=== PATIENT | female | born 1980 | race Caucasian/White ===

== ENCOUNTER → 2017-01-20 | Outpatient (REF) | payer OTHER | LOC: M SFHCWAGY 16:07 | PROVIDERS: ATTEND Nurse Practitioner Family | DX: Z12.4 Encounter for screening for malignant neoplasm of cervix (principal) ==

== ENCOUNTER 2017-12-25 16:33 | Emergency (ER) | payer OTHER | END 2017-12-25 17:32 | disposition home or self-care (01) | LOC: M ED 16:33 | DX: K08.89 Other specified disorders of teeth and supporting structures (principal); R51 Headache; R11.0 Nausea; Z87.891 Personal history of nicotine dependence | CPT/HCPCS: 99282 ==

== ENCOUNTER → 2018-01-09 | Outpatient (CLI) | payer OTHER | LOC: M RAD 09:13 | DX: R92.8 Other abnormal and inconclusive findings on diagnostic imaging of breast (principal) | CPT/HCPCS: 77066 ==

== ENCOUNTER 2018-09-18 09:32 | Emergency (ER) | payer OTHER ==
[~2018-09-18] VITALS: Ht 154.9 cm; Wt 70.5 kg
[~2018-09-18 09:32] MED LIST: AUGM500T34 PO; MAGICMW MT
[2018-09-18] MEDS ORDERED: KETOROLAC 60 MG/2 ML VIAL (J1885) IM ONE (10:30)
[2018-09-18] MEDS ORDERED: CYCLOBENZAPRINE 10 MG TAB PO ONE (10:30)
[2018-09-18] MEDS ORDERED: NAPR-885 PO (11:05)
[2018-09-18] MEDS ORDERED: ROBA500T PO (11:05)
[2018-09-18 11:15] VITALS: BP 124/77
--- NOTE | 2018-09-18 17:37 | ECGEPIP ---
Stationary ECG Study [facility] - ED Test Date: 2018-09-18 Pat Name: MABLE BAPTISTE Department: Room: - Gender: F [employer]: : 1980 Requested By: JOSSELIN Reinoso PA-C Order Number: [id number] Reading MD: Shayne Snyder Measurements Intervals [place] Rate: 78 P: 69 LA: 162 QRS: 52 QRSD: 96 T: 16 QT: 356 QTc: 406 Interpretive Statements SINUS RHYTHM POSSIBLE LEFT ATRIAL ENLARGEMENT NSTTW ABNORMALITIES NO PRIORS FOR COMPARISON Electronically Signed On 09-18-2018 17:36:31 EST by Shayne Snyder
== END 2018-09-18 11:19 | disposition home or self-care (01) ==
LOC: M ED 09:32
DX: S46.812A Strain of other muscles, fascia and tendons at shoulder and upper arm level, left arm, initial encounter (principal); X50.0XXA Overexertion from strenuous movement or load, initial encounter; Y92.098 Other place in other non-institutional residence as the place of occurrence of the external cause
CPT/HCPCS: 93005; 96372; 99284; J1885

== ENCOUNTER → 2018-10-29 | Outpatient (REF) | payer OTHER ==
[~2018-10-29] MED LIST changes: +NAPR-885 PO; +ROBA500T PO
== END ==
LOC: M SFHCLERA 20:22
PROVIDERS: ATTEND Physician Assistant
DX: R09.81 Nasal congestion (principal)

== ENCOUNTER 2019-06-15 19:04 | Emergency (ER) | payer OTHER ==
[~2019-06-15] VITALS: Ht 154.9 cm; Wt 68.2 kg
[2019-06-15] MEDS ORDERED: KETOROLAC 30 MG/ML VIAL (J1885) IM ONE (22:00)
[2019-06-15] MEDS ORDERED: ACETAMINOPHEN 500 MG TAB PO ONE (22:00)
[2019-06-15] MEDS ORDERED: LIDOCAINE 5% (LIDODERM) PATCH TD ONE (22:00)
[2019-06-16 00:08] VITALS: BP 111/56
[2019-06-16] MEDS ORDERED: **NOTE PATIENT COMMENT** MISC XX SCH (10:00)
== END 2019-06-16 00:09 | disposition home or self-care (01) ==
LOC: M ED 19:04
DX: S39.012A Strain of muscle, fascia and tendon of lower back, initial encounter (principal); X50.3XXA Overexertion from repetitive movements, initial encounter; Y92.098 Other place in other non-institutional residence as the place of occurrence of the external cause; Y93.F9 Activity, other caregiving; Y99.8 Other external cause status; Z87.891 Personal history of nicotine dependence
CPT/HCPCS: 96372; 99283; J1885

== ENCOUNTER → 2020-08-17 | Outpatient (REF) | payer OTHER | LOC: M SFHCWAGY 13:41 | PROVIDERS: ATTEND Nurse Practitioner Family | DX: Z12.4 Encounter for screening for malignant neoplasm of cervix (principal); R87.612 Low grade squamous intraepithelial lesion on cytologic smear of cervix (LGSIL) ==

== ENCOUNTER → 2020-09-05 | Outpatient (REF) | payer OTHER | LOC: M SFHCWAGY 17:13 | PROVIDERS: ATTEND Obstetrics & Gynecology | DX: R87.612 Low grade squamous intraepithelial lesion on cytologic smear of cervix (LGSIL) (principal) ==

== ENCOUNTER → 2020-09-24 | Outpatient (CLI) | payer OTHER | LOC: M LABSMTC 10:40 | PROVIDERS: ATTEND Anesthesiology | DX: Z01.812 Encounter for preprocedural laboratory examination (principal); Z20.822 Contact with and (suspected) exposure to COVID-19 ==

== ENCOUNTER 2020-09-29 08:58 | Day surgery (SDC) | payer OTHER ==
[~2020-09-29] VITALS: Ht 154.9 cm; Wt 83.4 kg
[~2020-09-29 08:58] MED LIST changes: +LIDOCAINE W/EPINEPHRINE 1% 20ML VIAL As Ordered ONE; +LR 1,000 ML IV ONE
[2020-09-29] MEDS ORDERED: propofoL 500 MG/50 ML VIAL As Ordered ONE (09:14)
[2020-09-29] MEDS ORDERED: LIDOCAINE 2% 100MG/5ML SDV (FOR ANES.) As Ordered ONE (09:14)
[2020-09-29] MEDS ORDERED: ONDANSETRON 4MG/2ML VIAL As Ordered ONE (09:14)
[2020-09-29] MEDS ORDERED: KETOROLAC 60MG 2ML VIAL As Ordered ONE (09:14)
[2020-09-29] MEDS ORDERED: dexameTHASONE 4 MG/ML 1ML VIAL (J1100 PER 1MG) As Ordered ONE (09:14)
[2020-09-29] MEDS ORDERED: fentaNYL 100 MCG/2 ML INJECTION (J3010) As Ordered ONE (09:15)
[2020-09-29] MEDS ORDERED: MIDAZOLAM INJ 2MG/2ML VIAL (J2250 PER 1MG) As Ordered ONE (09:15)
[2020-09-29] MEDS ORDERED: IODINE STRONG SOLN 15 ML BTL As Ordered ONE (09:41)
[2020-09-29 09:54] LABS: HEMATOCRIT 42.2 % (36.0-47.0); HEMOGLOBIN 13.3 g/dl (12.0-15.5); MEAN CORPUSCULAR HEMOGLOBIN 26.2 pg (27.0-33.0); MEAN CORPUSCULAR HGB CONC 31.5 g/dl (32.0-36.5); MEAN CORPUSCULAR VOLUME 83.2 fl (80.0-96.0); PLATELET COUNT, AUTOMATED 253 10^3/uL (150-450); RED BLOOD COUNT 5.07 10^6/uL (4.00-5.40); WHITE BLOOD COUNT 4.6 10^3/uL (4.0-10.0)
[2020-09-29 10:16] LABS: HCG, SERUM QUALITATIVE NEGATIVE (NEGATIVE)
--- NOTE | 2020-09-29 11:01 | ROOPDOC ---
[facility] Report Of Operation Report of Operation DATE OF OPERATION: 09/29/2020 PREOPERATIVE DIAGNOSIS:. CALLIE-2/3 POSTOPERATIVE DIAGNOSIS: CALLIE 2/3 PROCEDURE PERFORMED: Loop electrosurgical excision procedure (LEEP) SURGEON: Neftali Solomon DO CALCINER FEEDER: None. ANESTHESIA: Intravenous (IV) sedation with local anesthesia/paracervical block. SPECIMEN(S) SENT TO PATHOLOGY: Bottom half of the cervix with squamocolumnar junction. Top half of the cervix with the squamocolumnar junction. Endocervix ESTIMATED BLOOD LOSS: 10 mL. FLUIDS PLACED: 400 mL. DRAINS: In and out catheter, 50 mL. URINE OUTPUT: None. COMPLICATIONS: None. ANTIBIOTICS: None indicated. INTRAOPERATIVE FINDINGS: INDICATIONS: CALLIE 2/3 at 7:00 ectocervix. DESCRIPTION OF PROCEDURE: The patient was counseled and consented on the risks, benefits, indications, and alternatives of the procedure. Informed consent was obtained. She was taken to the operating room with an IV running in placed on the operating table and then dorsal supine position. Anesthesia was found to be adequate. She was placed in the high lithotomy position. She was prepared and draped in normal sterile fashion. Time-out was performed per protocol. The bladder was drained with sterile in and out catheter. A coated Graves speculum was placed into the vagina with good visualization of the cervix. Paracervical block was performed for postoperative comfort. 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 The size 20 mm x 10 mm loop was used to excise the bottom half of the cervix at the level of the squamocolumnar junction. In a similar fashion the top half of the cervix including the squamocolumnar junction was excised with the same loop, and these two specimens were sent separately to pathology. The remaining raw cervix was cauterized with a roller ball cautery. Excellent hemostasis was noted. Monsel solution was applied to ensure hemostasis. Sponge, needle, and instrument counts were correct per protocol. The patient tolerated the entire procedure very well. She was transferred to the PACU in good and stable condition. NEFTALI SOLOMON DO Sep 29, 2020 11:01
[2020-09-29 11:20] VITALS: BP 132/65
== END 2020-09-29 11:47 | disposition home or self-care (01) ==
LOC: M SDC 08:58
PROVIDERS: ATTEND Obstetrics & Gynecology
DX: N87.0 Mild cervical dysplasia (principal); F41.9 Anxiety disorder, unspecified; Z87.891 Personal history of nicotine dependence
CPT/HCPCS: 36415; 57522; 84703; 85027; 86850; 86900; 86901; 88305; 88307; J2250; J3010

== ENCOUNTER → 2021-08-20 | Outpatient (REF) | payer OTHER ==
[~2021-08-20] MED LIST changes: -LIDOCAINE W/EPINEPHRINE 1% 20ML VIAL As Ordered ONE; -LR 1,000 ML IV ONE
[2021-08-20 13:38] LABS: HEMATOCRIT 40.6 % (36.0-47.0); HEMOGLOBIN 12.8 g/dl (12.0-15.5); MEAN CORPUSCULAR HEMOGLOBIN 26.1 pg (27.0-33.0); MEAN CORPUSCULAR HGB CONC 31.5 g/dl (32.0-36.5); MEAN CORPUSCULAR VOLUME 82.9 fl (80.0-96.0); PLATELET COUNT, AUTOMATED 287 10^3/uL (150-450); WHITE BLOOD COUNT 6.4 10^3/uL (4.0-10.0)
[2021-08-20 14:35] LABS: ALT/SGPT 28 U/L (12-78); BILIRUBIN,TOTAL 0.4 MG/DL (0.2-1.0); BLOOD UREA NITROGEN 10 MG/DL (7-18); CALCIUM LEVEL 9.3 MG/DL (8.5-10.1); CARBON DIOXIDE LEVEL 27 MEQ/L (21-32); CHLORIDE LEVEL 104 MEQ/L (98-107); CREATININE FOR GFR 0.91 MG/DL (0.55-1.30); GLOMERULAR FILTRATION RATE > 60.0 (>60); GLUCOSE, FASTING 90 MG/DL (70-100); POTASSIUM SERUM 4.2 MEQ/L (3.5-5.1); SODIUM LEVEL 138 MEQ/L (136-145)
[2021-08-20 14:36] LABS: ALBUMIN 3.9 GM/DL (3.2-5.2); CHOLESTEROL LEVEL 198 MG/DL (<200); CHOLESTEROL RISK RATIO 3.142 (<5); HDL CHOLESTEROL 63 MG/DL (>40); LDL CHOLESTEROL 121 MG/DL (<100); NON-HDL-C 135 MG/DL; TOTAL PROTEIN 7.2 GM/DL (6.4-8.2); TRIGLYCERIDES LEVEL 70 MG/DL (<150)
== END ==
LOC: M SFHCADAM 09:30
PROVIDERS: ATTEND Physician Assistant Medical
DX: Z00.00 Encounter for general adult medical examination without abnormal findings (principal); Z13.220 Encounter for screening for lipoid disorders; Z13.0 Encounter for screening for diseases of the blood and blood-forming organs and certain disorders involving the immune mechanism

== ENCOUNTER → 2021-08-20 | Outpatient (CLI) | payer OTHER | LOC: M EKG 16:24 | PROVIDERS: ATTEND Physician Assistant Medical | DX: R00.2 Palpitations (principal) ==

== ENCOUNTER → 2021-10-15 | Outpatient (REF) | payer OTHER ==
[2021-10-15 13:36] LABS: FREE T4 1.23 NG/DL (0.76-1.46); THYROID STIMULATING HORMONE 3.2 uIU/ML (0.358-3.740)
== END ==
LOC: M SFHCADAM 08:16
PROVIDERS: ATTEND Physician Assistant Medical
DX: E03.9 Hypothyroidism, unspecified (principal)

== ENCOUNTER → 2021-10-22 | Outpatient (REF) | payer OTHER | LOC: M SFHCWAGY 17:23 | PROVIDERS: ATTEND Obstetrics & Gynecology | DX: Z12.4 Encounter for screening for malignant neoplasm of cervix (principal) ==

== ENCOUNTER → 2022-01-08 | Outpatient (CLI) | payer OTHER ==
[2022-01-08 14:47] LABS: BASO % 0.2 % (0.0-1.0); EOS % 0.2 % (0.0-3.0); HEMATOCRIT 37.5 % (36.0-47.0); HEMOGLOBIN 12.2 g/dl (12.0-15.5); LYMPH # 0.4 10^3/uL (1.5-5.0); LYMPH % 8.8 % (24.0-44.0); MEAN CORPUSCULAR HEMOGLOBIN 25.5 pg (27.0-33.0); MEAN CORPUSCULAR HGB CONC 32.5 g/dl (32.0-36.5); MEAN CORPUSCULAR VOLUME 78.5 fl (80.0-96.0); MONO # 0.3 10^3/uL (0.0-0.8); MONO % 7.2 % (2.0-8.0); NEUTROPHILS # 3.6 10^3/uL (1.5-8.5); NEUTROPHILS % 83.4 % (36.0-66.0); PLATELET COUNT, AUTOMATED 174 10^3/uL (150-450); RED BLOOD COUNT 4.78 10^6/uL (4.00-5.40); WHITE BLOOD COUNT 4.3 10^3/uL (4.0-10.0)
[2022-01-08 14:54] LABS: ALBUMIN 3.5 GM/DL (3.2-5.2); ALT/SGPT 72 U/L (12-78); BILIRUBIN,TOTAL 0.5 MG/DL (0.2-1.0); BLOOD UREA NITROGEN 7 MG/DL (7-18); C REACTIVE PROTEIN QUANTITATIV 6.95 MG/DL (0.00-0.30); CALCIUM LEVEL 9.3 MG/DL (8.5-10.1); CARBON DIOXIDE LEVEL 23 MEQ/L (21-32); CHLORIDE LEVEL 105 MEQ/L (98-107); CREATININE FOR GFR 1.05 MG/DL (0.55-1.30); GLOMERULAR FILTRATION RATE > 60.0 (>60); GLUCOSE, FASTING 97 MG/DL (70-100); POTASSIUM SERUM 3.9 MEQ/L (3.5-5.1); SODIUM LEVEL 136 MEQ/L (136-145); TOTAL PROTEIN 6.9 GM/DL (6.4-8.2)
[2022-01-08 15:01] LABS: MONO REFLEX EBV VCA IgM NEGATIVE (NEGATIVE)
[2022-01-08 15:11] LABS: ERYTHROCYTE SEDIMENTATION RATE 44 mm/hr (0-20)
== END ==
LOC: M ADAMS 12:01
PROVIDERS: ATTEND Physician Assistant
DX: R50.9 Fever, unspecified (principal); R52 Pain, unspecified; R21 Rash and other nonspecific skin eruption

== ENCOUNTER → 2022-02-15 | Outpatient (REF) | payer OTHER ==
[2022-02-15 14:33] LABS: ALBUMIN 3.8 GM/DL (3.2-5.2); BILIRUBIN,DIRECT 0.1 MG/DL (0.0-0.2); BILIRUBIN,TOTAL 0.2 MG/DL (0.2-1.0); C REACTIVE PROTEIN QUANTITATIV 0.47 MG/DL (0.00-0.30)
== END ==
LOC: M LABDRWAD 12:42
PROVIDERS: ATTEND Physician Assistant
DX: R89.9 Unspecified abnormal finding in specimens from other organs, systems and tissues (principal); R79.89 Other specified abnormal findings of blood chemistry

== ENCOUNTER → 2022-06-06 | Outpatient (REF) | payer OTHER | LOC: M SFHCADAM 07:30 | PROVIDERS: ATTEND Physician Assistant Medical | DX: E03.9 Hypothyroidism, unspecified (principal) ==

== ENCOUNTER → 2022-06-27 | Outpatient (CLI) | payer OTHER | LOC: M WHC 07:10 | PROVIDERS: ATTEND Physician Assistant Medical | DX: R22.1 Localized swelling, mass and lump, neck (principal) ==

== ENCOUNTER → 2022-12-31 | Outpatient (REF) | payer OTHER | LOC: M SFHCADAM 07:22 | PROVIDERS: ATTEND Physician Assistant Medical | DX: E03.9 Hypothyroidism, unspecified (principal) ==

== ENCOUNTER 2023-01-05 00:54 | Emergency (ER) | payer OTHER ==
[~2023-01-05] VITALS: Ht 154.9 cm; Wt 93.9 kg
[2023-01-05] MEDS ORDERED: SYNT50TA PO (01:03)
[2023-01-05] MEDS ORDERED: LIDOCAINE 1% MDV 20ML VIAL SC ONE (04:30)
[2023-01-05] MEDS ORDERED: LIDOCAINE 1% MDV 50ML VIAL SC ONE (04:30)
[2023-01-05 05:13] VITALS: BP 137/71; TEMP 96.7; O2SAT 97
== END 2023-01-05 05:15 | disposition home or self-care (01) ==
LOC: M ED 00:54
DX: S63.105A Unspecified dislocation of left thumb, initial encounter (principal); W19.XXXA Unspecified fall, initial encounter; Y92.009 Unspecified place in unspecified non-institutional (private) residence as the place of occurrence of the external cause; Y93.89 Activity, other specified; Y99.8 Other external cause status; E03.9 Hypothyroidism, unspecified; K21.9 Gastro-esophageal reflux disease without esophagitis; Z79.899 Other long term (current) drug therapy

== ENCOUNTER → 2023-02-03 | Outpatient (CLI) | payer OTHER ==
[~2023-02-03] MED LIST changes: +SYNT50TA PO
== END ==
LOC: M SOG 10:05
PROVIDERS: ATTEND Physician Assistant
DX: S63.115A Dislocation of metacarpophalangeal joint of left thumb, initial encounter (principal); W18.30XA Fall on same level, unspecified, initial encounter; Y92.009 Unspecified place in unspecified non-institutional (private) residence as the place of occurrence of the external cause

== ENCOUNTER → 2023-02-10 | Outpatient (REF) | payer OTHER | LOC: M SFHCADAM 12:18 | PROVIDERS: ATTEND Physician Assistant Medical | DX: E03.9 Hypothyroidism, unspecified (principal) ==

== ENCOUNTER → 2023-03-03 | Outpatient (CLI) | payer OTHER | LOC: M SOG 07:58 | PROVIDERS: ATTEND Physician Assistant | DX: S63.11 Subluxation and dislocation of metacarpophalangeal joint of thumb (principal); W18.30XD Fall on same level, unspecified, subsequent encounter ==

== ENCOUNTER → 2023-03-25 | Outpatient (REF) | payer OTHER ==
[2023-03-25 16:06] LABS: FREE T4 1.43 NG/DL (0.89-1.76); THYROID STIMULATING HORMONE 3.507 uIU/ML (0.55-4.78)
== END ==
LOC: M SFHCADAM 07:29
PROVIDERS: ATTEND Physician Assistant Medical
DX: E03.9 Hypothyroidism, unspecified (principal)

== ENCOUNTER → 2023-07-15 | Outpatient (REF) | payer OTHER | LOC: M SFHCWAGY 13:12 | PROVIDERS: ATTEND Obstetrics & Gynecology | DX: Z12.4 Encounter for screening for malignant neoplasm of cervix (principal) ==

== ENCOUNTER → 2023-07-15 | Outpatient (CLI) | payer OTHER | LOC: M WHC 08:14 | PROVIDERS: ATTEND Obstetrics & Gynecology | DX: Z12.31 Encounter for screening mammogram for malignant neoplasm of breast (principal) ==

== ENCOUNTER → 2023-07-16 | Outpatient (CLI) | payer OTHER | LOC: M WHC 08:40 | PROVIDERS: ATTEND Obstetrics & Gynecology | DX: N85.2 Hypertrophy of uterus (principal) ==

== ENCOUNTER → 2023-07-30 | Outpatient (CLI) | payer OTHER | LOC: M WHC 08:03 | PROVIDERS: ATTEND Obstetrics & Gynecology | DX: Z12.31 Encounter for screening mammogram for malignant neoplasm of breast (principal) ==

== ENCOUNTER → 2023-08-11 | Outpatient (CLI) | payer OTHER ==
[~2023-08-11] MED LIST changes: +PROHANCE 279.3MG/ML 15ML VIAL ONE; +PROHANCE 279.3MG/ML 5ML VIAL ONE; +diphenhydrAMINE 25MG CAP ONE
== END ==
LOC: M PLAIMG 07:49
PROVIDERS: ATTEND Obstetrics & Gynecology
DX: N85.8 Other specified noninflammatory disorders of uterus (principal)
CPT/HCPCS: 72197; A9576

== ENCOUNTER → 2023-08-12 | Outpatient (REF) | payer OTHER ==
[~2023-08-12] MED LIST changes: -PROHANCE 279.3MG/ML 15ML VIAL ONE; -PROHANCE 279.3MG/ML 5ML VIAL ONE; -diphenhydrAMINE 25MG CAP ONE
[2023-08-12 15:21] LABS: BASO % 0.3 % (0.0-1.0); EOS # 0.2 10^3/uL (0.0-0.5); EOS % 2.2 % (0.0-3.0); HEMATOCRIT 37.2 % (36.0-47.0); HEMOGLOBIN 11.3 g/dl (12.0-15.5); LYMPH # 1.4 10^3/uL (1.5-5.0); LYMPH % 20.2 % (24.0-44.0); MEAN CORPUSCULAR HEMOGLOBIN 23.9 pg (27.0-33.0); MEAN CORPUSCULAR HGB CONC 30.4 g/dl (32.0-36.5); MEAN CORPUSCULAR VOLUME 78.6 fl (80.0-96.0); MONO # 0.4 10^3/uL (0.0-0.8); MONO % 5.8 % (2.0-8.0); NEUTROPHILS # 4.9 10^3/uL (1.5-8.5); NEUTROPHILS % 71.1 % (36.0-66.0); PLATELET COUNT, AUTOMATED 292 10^3/uL (150-450); RED BLOOD COUNT 4.73 10^6/uL (4.00-5.40); WHITE BLOOD COUNT 6.9 10^3/uL (4.0-10.0)
[2023-08-12 15:44] LABS: FREE T4 1.45 NG/DL (0.89-1.76); THYROID STIMULATING HORMONE 3.491 uIU/ML (0.55-4.78)
[2023-08-12 15:47] LABS: TOTAL 25(OH) VITAMIN D 22.1 NG/ML (20.0-100.0)
[2023-08-12 15:50] LABS: ALBUMIN 3.7 G/DL (3.2-5.2); ALKALINE PHOSPHATASE 79 U/L (46-116); ALT/SGPT 16 U/L (7.0-40); AST/SGOT 10 U/L (<34); BILIRUBIN,TOTAL 0.3 MG/DL (0.3-1.2); BLOOD UREA NITROGEN 11 MG/DL (9-23); CALCIUM LEVEL 8.8 MG/DL (8.5-10.1); CARBON DIOXIDE LEVEL 24 MMOL/L (20-31); CHLORIDE LEVEL 108 MMOL/L (98-107); CHOLESTEROL LEVEL 185 MG/DL (<200); CHOLESTEROL RISK RATIO 3.34 (<5); CREATININE FOR GFR 0.94 MG/DL (0.55-1.30); GLOMERULAR FILTRATION RATE > 60.0 (>58); GLUCOSE, FASTING 91 MG/DL (60-100); HDL CHOLESTEROL 55.3 MG/DL (>40); LDL CHOLESTEROL 114.3 MG/DL (<100); NON-HDL-C 129.7 MG/DL; SODIUM LEVEL 137 MMOL/L (136-145); TOTAL PROTEIN 6.5 G/DL (5.7-8.2); TRIGLYCERIDES LEVEL 77 MG/DL (<150)
== END ==
LOC: M SFHCADAM 07:54
PROVIDERS: ATTEND Physician Assistant Medical
DX: F32.0 Major depressive disorder, single episode, mild (principal); E66.01 Morbid (severe) obesity due to excess calories; K21.9 Gastro-esophageal reflux disease without esophagitis

== ENCOUNTER → 2023-08-18 | Outpatient (REF) | payer OTHER ==
[2023-08-18 14:51] LABS: PERCENT SATURATION 4.5 % (13.2-45.0)
[2023-08-18 14:56] LABS: BASO % 0.3 % (0.0-1.0); EOS # 0.2 10^3/uL (0.0-0.5); HEMATOCRIT 35.6 % (36.0-47.0); HEMOGLOBIN 10.9 g/dl (12.0-15.5); LYMPH # 1.6 10^3/uL (1.5-5.0); LYMPH % 22.4 % (24.0-44.0); MEAN CORPUSCULAR HGB CONC 30.6 g/dl (32.0-36.5); MEAN CORPUSCULAR VOLUME 78.2 fl (80.0-96.0); MONO # 0.5 10^3/uL (0.0-0.8); MONO % 7.1 % (2.0-8.0); NEUTROPHILS # 4.6 10^3/uL (1.5-8.5); NEUTROPHILS % 66.9 % (36.0-66.0); PLATELET COUNT, AUTOMATED 294 10^3/uL (150-450); RED BLOOD COUNT 4.55 10^6/uL (4.00-5.40); WHITE BLOOD COUNT 6.9 10^3/uL (4.0-10.0)
[2023-08-18 14:58] LABS: FERRITIN 5.5 NG/ML (7.3-270.7)
== END ==
LOC: M SFHCADAM 07:52
PROVIDERS: ATTEND Physician Assistant Medical
DX: D64.9 Anemia, unspecified (principal)

== ENCOUNTER → 2023-10-07 | Outpatient (REF) | payer OTHER ==
[2023-10-07 13:21] LABS: FREE T4 1.39 NG/DL (0.89-1.76)
[2023-10-07 13:22] LABS: THYROID STIMULATING HORMONE 2.359 uIU/ML (0.55-4.78)
== END ==
LOC: M SFHCADAM 08:05
PROVIDERS: ATTEND Physician Assistant Medical
DX: E03.9 Hypothyroidism, unspecified (principal)

== ENCOUNTER → 2023-11-03 | Outpatient (REF) | payer OTHER ==
[2023-11-03 12:38] LABS: HEMATOCRIT 39.2 % (36.0-47.0); HEMOGLOBIN 12.2 g/dl (12.0-15.5); MEAN CORPUSCULAR HEMOGLOBIN 24.6 pg (27.0-33.0); MEAN CORPUSCULAR HGB CONC 31.1 g/dl (32.0-36.5); MEAN CORPUSCULAR VOLUME 79.2 fl (80.0-96.0); PLATELET COUNT, AUTOMATED 268 10^3/uL (150-450); RED BLOOD COUNT 4.95 10^6/uL (4.00-5.40); WHITE BLOOD COUNT 7.2 10^3/uL (4.0-10.0)
[2023-11-03 13:09] LABS: FERRITIN 15.5 NG/ML (7.3-270.7); PERCENT SATURATION 7.3 % (13.2-45.0)
== END ==
LOC: M SFHCADAM 10:31
PROVIDERS: ATTEND Physician Assistant Medical
DX: D50.0 Iron deficiency anemia secondary to blood loss (chronic) (principal)

== ENCOUNTER 2023-12-24 06:05 | Day surgery (SDC) | payer OTHER ==
[~2023-12-24] VITALS: Ht 154.9 cm; Wt 97.0 kg
[~2023-12-24 06:05] MED LIST changes: +CLAR10CA3 PO; +FERR325T19 PO; +LEVO75TA4 PO; +LEXA1TAB PO
[2023-12-24] MEDS ORDERED: LR 1,000 ML IV SCH ×2 (06:30→12:10)
[2023-12-24 06:42] LABS: HEMATOCRIT 38.5 % (36.0-47.0); MEAN CORPUSCULAR HEMOGLOBIN 24.7 pg (27.0-33.0); MEAN CORPUSCULAR HGB CONC 31.2 g/dl (32.0-36.5); MEAN CORPUSCULAR VOLUME 79.4 fl (80.0-96.0); PLATELET COUNT, AUTOMATED 279 10^3/uL (150-450); RED BLOOD COUNT 4.85 10^6/uL (4.00-5.40)
[2023-12-24] MEDS: METHYLENE BLUE 0.5% (5MG/ML) 10 ML AMP (PROVAYBLUE) As Ordered ONE (07:16)
[2023-12-24] MEDS: SCOPOLAMINE 1MG TRANSDERMAL PATCH As Ordered ONE (07:40)
[2023-12-24] MEDS: ceFAZolin SOD 2 GM in IV 1 EA IV ONE (07:51)
[2023-12-24] MEDS ORDERED: ONDANSETRON 4MG 2ML VIAL As Ordered ONE (08:14)
[2023-12-24] MEDS ORDERED: KETOROLAC 60MG 2ML VIAL As Ordered ONE (08:14)
[2023-12-24] MEDS ORDERED: ACETAMINOPHEN 1000MG 100ML IV BAG As Ordered ONE (08:14)
[2023-12-24] MEDS ORDERED: LIDOCAINE 2% 100MG/5ML SDV (FOR ANES.) As Ordered ONE (08:14)
[2023-12-24] MEDS ORDERED: METOCLOPRAMIDE INJ 10MG/2ML VIAL As Ordered ONE (08:14)
[2023-12-24] MEDS ORDERED: fentaNYL 100 MCG/2 ML INJECTION As Ordered ONE (08:14)
[2023-12-24] MEDS ORDERED: ePHEDrine SULFATE 25 MG/5 ML(5MG/ML) SYRINGE As Ordered ONE (08:14)
[2023-12-24] MEDS ORDERED: SUGAMMADEX SODIUM 500 MG/5 ML VIAL (BRIDION) As Ordered ONE (08:14)
[2023-12-24] MEDS ORDERED: MIDAZOLAM INJ 2MG/2ML VIAL As Ordered ONE (08:14)
[2023-12-24] MEDS ORDERED: HYDROmorphone HCL 2MG/ML 1ML VIAL As Ordered ONE (08:14)
[2023-12-24] MEDS ORDERED: propofoL 200 MG/20 ML VIAL As Ordered ONE (08:14)
[2023-12-24] MEDS ORDERED: ROCURONIUM BROMIDE 50MG/5ML VIAL As Ordered ONE (08:14)
[2023-12-24] MEDS: ceFAZolin 2 GM/D5W 50 ML IV BAG As Ordered ONE (11:16)
[2023-12-24] MEDS ORDERED: ONDANSETRON 4MG 2ML VIAL IV PRN (12:10)
[2023-12-24] MEDS ORDERED: HYDROMORPHONE HCL 0.5 MG/ 0.5 ML SYRINGE IV PRN (12:10)
[2023-12-24] MEDS ORDERED: MORPHINE 4 MG/ML 1ML VIAL IV PRN (12:30)
[2023-12-24] MEDS ORDERED: PROMETHAZINE 25MG/ML 1ML VIAL IV PRN (12:30)
[2023-12-24] MEDS ORDERED: PERCOCET 5MG/325MG TAB PO PRN ×2 (12:30)
[2023-12-24] MEDS ORDERED: IBUP80TA PO (12:34)
[2023-12-24] MEDS ORDERED: COLA100C5 PO (12:34)
[2023-12-24] MEDS ORDERED: PERCOCET PO (12:34)
[2023-12-24] MEDS: fentaNYL 100 MCG/2 ML INJECTION IV PRN (12:58)
[2023-12-24] MEDS: oxyCODONE 5MG TAB PO PRN (13:07)
[2023-12-24 13:40] VITALS: BP 122/68; TEMP 97.5; O2SAT 97
[2023-12-24] MEDS: LR 1,000 ML IV SCH (13:50)
[2023-12-24] MEDS: DOCUSATE SODIUM 100MG CAPSULE PO SCH (13:55)
[2023-12-24] MEDS: KETOROLAC 30 MG/ML 1ML VIAL IV SCH (13:56)
[2023-12-24 14:10] VITALS: BP 106/55; TEMP 97.5; O2SAT 96
[2023-12-24 14:40] VITALS: BP 98/65; TEMP 97.7; O2SAT 97
[2023-12-24 15:40] VITALS: BP 112/60; TEMP 97.7; O2SAT 98
[2023-12-24 16:40] VITALS: BP 112/59; TEMP 97.9; O2SAT 97
[2023-12-24 17:40] VITALS: BP 117/66; TEMP 98.2; O2SAT 96
[2023-12-25] MEDS ORDERED: LEVOTHYROXINE 75MCG TABLET (0.075MG) PO SCH (06:00)
[2023-12-25] MEDS ORDERED: LORATADINE 10 MG TAB PO SCH (09:00)
[2023-12-25] MEDS ORDERED: ESCITALOPRAM OXALATE 10 MG TAB (LEXAPRO) PO SCH (09:00)
[2023-12-25] MEDS ORDERED: IBUPROFEN 800 MG TAB PO SCH (16:00)
== END 2023-12-24 18:00 | disposition home or self-care (01) ==
LOC: M SDC 06:05 → M RR INP 06:06 → UNDOADMOB 06:06 → M RR INP 13:40 → M MS5PR 13:40 → M SDC 18:00 → UNDODISOB 18:00
PROVIDERS: ATTEND Obstetrics & Gynecology
DX: D25.9 Leiomyoma of uterus, unspecified (principal); N85.2 Hypertrophy of uterus; N85.8 Other specified noninflammatory disorders of uterus; R10.2 Pelvic and perineal pain; Z79.899 Other long term (current) drug therapy; Z87.891 Personal history of nicotine dependence
CPT/HCPCS: 36415; 58573; 81025; 85027; 86850; 86900; 86901; 88307; 96374; J0131; J0665; J0690; J1100; J1170; J1885; J2250; J2405; J2765; J3010; Q9968; S2900

== ENCOUNTER → 2024-04-01 | Outpatient (REF) | payer BC ==
[~2024-04-01] MED LIST changes: +COLA100C5 PO; +IBUP80TA PO; +PERCOCET PO
[2024-04-01 14:01] LABS: HEMOGLOBIN 12.2 g/dl (12.0-15.5); MEAN CORPUSCULAR HEMOGLOBIN 24.2 pg (27.0-33.0); MEAN CORPUSCULAR HGB CONC 30.5 g/dl (32.0-36.5); MEAN CORPUSCULAR VOLUME 79.4 fl (80.0-96.0); PLATELET COUNT, AUTOMATED 301 10^3/uL (150-450); RED BLOOD COUNT 5.04 10^6/uL (4.00-5.40); WHITE BLOOD COUNT 6.7 10^3/uL (4.0-10.0)
[2024-04-01 14:10] LABS: PERCENT SATURATION 10.2 % (13.2-45.0)
[2024-04-01 14:15] LABS: FERRITIN 13.1 NG/ML (7.3-270.7); FREE T4 1.46 NG/DL (0.89-1.76); THYROID STIMULATING HORMONE 2.209 uIU/ML (0.55-4.78)
== END ==
LOC: M SFHCADAM 08:10
PROVIDERS: ATTEND Physician Assistant Medical
DX: D50.0 Iron deficiency anemia secondary to blood loss (chronic) (principal); E03.9 Hypothyroidism, unspecified

== ENCOUNTER → 2024-08-31 | Outpatient (REF) | payer BC ==
[2024-08-31 15:10] LABS: BASO % 0.3 % (0.0-1.0); EOS # 0.2 10^3/uL (0.0-0.5); EOS % 3.5 % (0.0-3.0); HEMATOCRIT 39.9 % (36.0-47.0); HEMOGLOBIN 12.8 g/dl (12.0-15.5); LYMPH # 1.2 10^3/uL (1.5-5.0); LYMPH % 19.9 % (24.0-44.0); MEAN CORPUSCULAR HEMOGLOBIN 26.7 pg (27.0-33.0); MEAN CORPUSCULAR HGB CONC 32.1 g/dl (32.0-36.5); MEAN CORPUSCULAR VOLUME 83.3 fl (80.0-96.0); MONO # 0.4 10^3/uL (0.0-0.8); MONO % 6.3 % (2.0-8.0); NEUTROPHILS # 4.2 10^3/uL (1.5-8.5); NEUTROPHILS % 69.7 % (36.0-66.0); PLATELET COUNT, AUTOMATED 267 10^3/uL (150-450); RED BLOOD COUNT 4.79 10^6/uL (4.00-5.40)
[2024-08-31 15:17] LABS: FREE T4 1.31 NG/DL (0.89-1.76); THYROID STIMULATING HORMONE 1.941 uIU/ML (0.55-4.78)
[2024-08-31 15:18] LABS: PERCENT SATURATION 16.3 % (13.2-45.0)
[2024-08-31 15:19] LABS: TOTAL 25(OH) VITAMIN D 11.4 NG/ML (20.0-100.0)
== END ==
LOC: M SFHCADAM 08:17
PROVIDERS: ATTEND Physician Assistant Medical
DX: F32.0 Major depressive disorder, single episode, mild (principal); E03.9 Hypothyroidism, unspecified; D50.0 Iron deficiency anemia secondary to blood loss (chronic)

== ENCOUNTER → 2024-11-25 | Outpatient (REF) | payer BC ==
[2024-11-29 01:30] LABS: HPV VAGINAL Not Detected (NOT DETECT)
== END ==
LOC: M SFHCWAGY 15:21
PROVIDERS: ATTEND Obstetrics & Gynecology
DX: Z12.72 Encounter for screening for malignant neoplasm of vagina (principal); Z12.4 Encounter for screening for malignant neoplasm of cervix
CPT/HCPCS: 87624; G0123

== ENCOUNTER → 2024-11-25 | Outpatient (CLI) | payer BC | LOC: M WHC 11:23 | PROVIDERS: ATTEND Obstetrics & Gynecology | DX: Z12.31 Encounter for screening mammogram for malignant neoplasm of breast (principal) ==

== ENCOUNTER → 2024-12-01 | Outpatient (CLI) | payer BC | LOC: M WHC 13:52 | PROVIDERS: ATTEND Obstetrics & Gynecology | DX: Z12.31 Encounter for screening mammogram for malignant neoplasm of breast (principal) ==

== ENCOUNTER → 2025-06-27 | Outpatient (REF) | payer BC ==
[2025-06-27 13:57] LABS: ALT/SGPT 18 U/L (7.0-40); AST/SGOT 17 U/L (<34); CALCIUM LEVEL 8.7 MG/DL (8.5-10.1); CARBON DIOXIDE LEVEL 26 MMOL/L (20-31); CHLORIDE LEVEL 106 MMOL/L (98-107); CHOLESTEROL LEVEL 213 MG/DL (<200); CHOLESTEROL RISK RATIO 3.84 (<5); CREATININE FOR GFR 0.81 MG/DL (0.55-1.30); GLOMERULAR FILTRATION RATE > 90.0 (>58); IRON (FE) 63 UG/DL (50-170); LDL CHOLESTEROL 130.8 MG/DL (<100); NON-HDL-C 157.6 MG/DL; PERCENT SATURATION 20.2 % (13.2-45.0); POTASSIUM SERUM 4.7 MMOL/L (3.5-5.1); SODIUM LEVEL 141 MMOL/L (136-145); TRIGLYCERIDES LEVEL 134 MG/DL (<150)
[2025-06-27 13:58] LABS: PLATELET COUNT, AUTOMATED 277 10^3/uL (150-450)
[2025-06-27 14:01] LABS: TOTAL 25(OH) VITAMIN D 21.5 NG/ML (20.0-100.0)
[2025-06-27 14:02] LABS: FREE T4 1.25 NG/DL (0.89-1.76)
== END ==
LOC: M SFHCADAM 08:42
PROVIDERS: ATTEND Physician Assistant Medical
DX: D50.0 Iron deficiency anemia secondary to blood loss (chronic) (principal); E66.01 Morbid (severe) obesity due to excess calories; F32.0 Major depressive disorder, single episode, mild; F41.1 Generalized anxiety disorder; E55.9 Vitamin D deficiency, unspecified